=== PATIENT | female | born 1995 | race Caucasian/White ===

== ENCOUNTER 2023-10-20 07:15 | Day surgery (SDC) | payer OTHER ==
[~2023-10-20] VITALS: Ht 170.2 cm; Wt 106.6 kg
[2023-10-20 08:03] LABS: HCG,QUAL RESULT NEGATIVE (NEGATIVE)
[2023-10-20] MEDS: MIDAZOLAM HCL 5 MG/5 ML VIAL ONE ×2 (09:29→09:38)
[2023-10-20] MEDS: MEPERIDINE 100 MG INJ. 100 MG/ML VIAL ONE (09:29)
[2023-10-20] MEDS: DIPHENHYDRAMINE INJ 50 MG/ML VIAL ONE (09:33)
[2023-10-20 09:44] VITALS: O2SAT 98
[2023-10-20 14:10] VITALS: BP_SYST 117; PULSE 64; RESP 16
== END 2023-10-20 10:54 | disposition home or self-care (01) ==
LOC: SDS 07:15 → SMU 07:17 → SDS 10:54
PROVIDERS: ATTEND Internal Medicine Gastroenterology
DX: R11.2 Nausea with vomiting, unspecified (principal); K29.50 Unspecified chronic gastritis without bleeding; B96.81 Helicobacter pylori [H. pylori] as the cause of diseases classified elsewhere; K21.9 Gastro-esophageal reflux disease without esophagitis; K44.9 Diaphragmatic hernia without obstruction or gangrene; F41.9 Anxiety disorder, unspecified; J45.909 Unspecified asthma, uncomplicated; F32.A Depression, unspecified; Z87.891 Personal history of nicotine dependence; Z79.899 Other long term (current) drug therapy
CPT/HCPCS: 43239; 99152; 87081; 84703; 36415; 88305; 88312; 88313; G0378; J1200; J2250; J2175